=== PATIENT | male | born 1960 | race Hispanic/Latino ===

== ENCOUNTER 2019-09-06 02:16 | Emergency (ER) | payer OTHER ==
[~2019-09-06] VITALS: Ht 165.1 cm; Wt 68.0 kg
[2019-09-06] MEDS ORDERED: ASPIRIN 81 MG CHEW TAB PO ONE (02:30)
[2019-09-06] MEDS ORDERED: KETOROLAC TROMETHAMINE 60 MG/2 ML VIAL IM ONE (03:00)
[2019-09-06 04:02] LABS: BILIRUBIN,URINE NEGATIVE (NEGATIVE); CLARITY,URINE CLOUDY (CLEAR); COLOR,URINE YELLOW (YELLOW); KETONES,URINE NEGATIVE (NEGATIVE); LEUKOCYTE ESTERASE ,URINE NEGATIVE (NEGATIVE); NITRITE,URINE NEGATIVE (NEGATIVE); PROTEIN,URINE DIPSTICK NEGATIVE (NEGATIVE); URINE UROBILINOGEN 0.2 mg/dL (0.2 - 1)
--- NOTE | 2019-09-06 04:17 | Diagnostic Imaging Report ---
EXAM: CT Abdomen and Pelvis WITHOUT contrast INDICATION: Right flank pain. COMPARISON: None. TECHNIQUE: Abdomen and pelvis were scanned utilizing a multidetector helical scanner from the lung base to the pubic symphysis without administration of IV contrast. Absence of intravenous contrast decreases sensitivity for detection of focal lesions and vascular pathology. Coronal and sagittal reformations were obtained. Renal stone protocol was performed. IV CONTRAST: None. ORAL CONTRAST: Water RADIATION DOSE: Total DLP: 244.91 mGy*cm Estimated effective dose: (DLP x 0.015 x size factor) mSv COMPLICATIONS: None FINDINGS: LINES and TUBES: None. LOWER THORAX: Unremarkable HEPATOBILIARY: No focal hepatic lesions. No biliary ductal dilation. GALLBLADDER: No radio-opaque stones or sludge. No wall thickening. SPLEEN: No splenomegaly. PANCREAS: No focal masses or ductal dilatation. ADRENALS: No adrenal nodules KIDNEYS/URETERS: Mild right hydroureteronephrosis. Right perinephric stranding without perinephric fluid collections. There is no left-sided hydronephrosis. No cystic or solid mass lesions. Millimeter calculus in the interpolar region of the right kidney on image 73 series 3. GI TRACT: No abnormal distention, wall thickening, or evidence of bowel obstruction. There are diverticula within the colon without evidence of diverticulitis. Appendix is normal. PELVIC ORGANS/BLADDER: 2.5 mm calculus within the right posterior aspect of the urinary bladder lumen just distal to the right UVJ, likely recently passed. Calcifications of the prostate. LYMPH NODES: No lymphadenopathy. VESSELS: Unremarkable. PERITONEUM / RETROPERITONEUM: No free air or fluid. BONES: There are degenerative changes in the lumbar spine. SOFT TISSUES: Bilateral small fat-containing inguinal hernias. IMPRESSION: 2.5 mm calculus within the right posterior aspect of the urinary bladder lumen just distal to the right UVJ associated with right hydroureteronephrosis; it likely recently passed. Signed by: Dr. Ronnie Moss M.D. on 09/06/2019 4:14 AM
[2019-09-06 04:26] VITALS: BP 171/83
[2019-09-06 04:35] LABS: BACTERIA,URINE MODERATE /HPF; EPITHELIAL CELLS,URINE FEW /LPF; RBC,URINE >50 /HPF (0-5); RENAL EPITHELIAL CELLS,URINE FEW; WBC,URINE (MAN) 0-5 /HPF (0-5)
== END 2019-09-06 04:32 | disposition home or self-care (01) ==
LOC: ER 02:16
DX: R10.9 Unspecified abdominal pain (principal); M54.5 Low back pain; R11.10 Vomiting, unspecified; N20.1 Calculus of ureter; I10 Essential (primary) hypertension
CPT/HCPCS: 74176; 81001; 99283; J1885

== ENCOUNTER → 2019-12-30 | Day surgery (SDC) | payer OTHER ==
--- NOTE | 2019-12-26 16:22 | Diagnostic Imaging Report ---
Exam: KUB - 2 views Indication: Preoperative Comparison: CT abdomen and pelvis of 09/06/2019 Findings: 4 mm right midpole renal calculus. No radiographically apparent left renal calculi. No acute osseous injury. Nonobstructive bowel gas pattern. No free air. Impression: 4 mm right midpole renal calculus. Signed by: Florencia Gayle MD on 12/26/2019 4:19 PM
[~2019-12-30] MED LIST: DEXAMETHASONE SOD PHOS INJ 4 MG/ML VIAL ONE; FENTANYL CITRATE/PF 100MCG/2 ML INJ ONE; LEVOFLOXACIN 500MG/D5W 100ML 100 ML IV ONE; LIDOCAINE HCL 2% LOCAL INJ 5 ML SDV VIAL INJ ONE; LOSARTAN POTASS25 MG PO; ONDANSETRON HCL INJ 2MG/ML 2ML 2 MG/ML VIAL ONE; PROPOFOL IV EMULSION 10 MG/ML 20 ML VIAL ONE; SEVOFLURANE INHAL SOLN 250 ML PEN BTL ONE
--- OUTSIDE RECORDS SUMMARY | 2019-12-30 05:57 | XMS REPORT ---
Author Author [facility] Address Unknown Phone Unavailable Care Team Providers Care [employer] Specialist Name Role Phone HANNAH ARCEO Unavailable Unavailable CHAS ELDER Unavailable Unavailable Problems This patient has no known problems. Allergies, Adverse Reactions, Alerts This patient has no known allergies or adverse reactions. Medications This patient has no known medications. Results Test Description Test Time Test Comments Text Results Atomic Results Result Comments ABDOMEN-1VIEW (KUB) 2019-12-26 16:18:00 [place] [address] Patient Name: ROSHNI TAPIA MR #: [id number] : 1960 Age/Sex: 59/M Req #: [id number] Adm Physician: Ordered by: HANNAH ARCEO MD Report #: [id number] Location: OR Room/Bed: Procedure: [id number] DX/ABDOMEN-1VIEW (KUB) Exam Date: 12/26/19 Exam Time: 1605 REPORT STATUS: Signed Exam: KUB - 2 views Indication: Preoperative Comparison: CT abdomen and pelvis of 09/06/2019 Findings: 4 mm right midpole renal calculus. No radiographically apparent left renal calculi. No acute osseous injury. Nonobstructive bowel gas pattern. No free air. Impression: 4 mm right midpole renal calculus. Signed by: David Guzman MD on 12/26/2019 4:19 PM Dictated By: DAVID GUZMAN MD 18 Transcribed By: STEPHANE on 12/26/191618 COPY TO: HANNAH ARCEO MD CT ABDOMEN/PELVIS WO 2019-09-06 04:06:00 [place] [address] Patient Name: ROSHNI TAPIA MR #: [id number] : 1960 Age/Sex: 59/M Req #: [id number] Adm Physician: Ordered by: CHAS ELDER DO Report #: [id number] Location: ER Room/Bed: Procedure: [id number] CT/CT ABDOMEN/PELVIS WO Exam Date: Exam Time: REPORT STATUS: Signed EXAM: CT Abdomen and Pelvis WITHOUT contrast INDICATION: Right flank pain. COMPARISON: None. TECHNIQUE: Abdomen and pelvis were scanned utilizing a multidetector helical scanner from the lung base to the pubic symphysis without administration of IV contrast. Absence of intravenous contrast decreases sensitivity for detection of focal lesions and vascular pathology. Coronal and sagittal reformations were obtained. Renal stone protocol was performed. IV CONTRAST: None. ORAL CONTRAST: Water RADIATION DOSE: Total DLP: 244.91 mGy*cm Estimated effective dose: (DLP x 0.015 x size factor) mSv COMPLICATIONS: None FINDINGS: LINES and TUBES: None. LOWER THORAX: Unremarkable HEPATOBILIARY: No focal hepatic lesions. No biliary ductal dilation. GALLBLADDER: No radio-opaque stones or sludge. No wall thickening. SPLEEN: No splenomegaly. PANCREAS: No focal masses or ductal dilatation. ADRENALS: No adrenal nodules KIDNEYS/URETERS: Mild right hydroureteronephrosis. Right perinephric stranding without perinephric fluid collections. There is no left-sided hydronephrosis. No cystic or solid mass lesions. Millimeter calculus in the interpolar region of the right kidney on image 73 series 3. GI TRACT: No abnormal distention, wall thickening, or evidence of bowel obstruction. There are diverticula within the colon without evidence of diverticulitis. Appendix is normal. PELVIC ORGANS/BLADDER: 2.5 mm calculus within the right posterior aspect of the urinary bladder lumen just distal to the right UVJ, likely recently passed. Calcifications of the prostate. LYMPH NODES: No lymphadenopathy. VESSELS: Unremarkable. PERITONEUM / RETROPERITONEUM: No free air or fluid. BONES: There are degenerative changes in the lumbar spine. SOFT TISSUES: Bilateral small fat-containing inguinal hernias. IMPRESSION: 2.5 mm calculus within the right posterior aspect of the urinary bladder lumen just distal to the right UVJ associated with right hydroureteronephrosis; it likely recently passed. Signed by: Dr. Ronnie Lal M.D. on 09/06/2019 4:14 AM Dictated By: ALISA LAL MD, MD Transcribed By: STEPHANE on 09/06/19413 COPY TO: CHAS ELDER DO
[2019-12-30 09:30] VITALS: BP 143/91
--- NOTE | 2020-01-04 15:30 | Operative Report ---
DATE OF PROCEDURE: 12/30/2019 SURGEON: Marcelo Palacio MD PREOPERATIVE DIAGNOSIS: Right-sided kidney stone. POSTOPERATIVE DIAGNOSIS: Right-sided kidney stone. PROCEDURES: 1. Staged right-sided shock wave lithotripsy. 2. Supervision of fluoroscopy. ANESTHESIA: General. ESTIMATED BLOOD LOSS: Minimal. COMPLICATIONS: None. INDICATIONS FOR PROCEDURE: Mr. Castro is a very pleasant 59-year-old male with a history of intermittently symptomatic right-sided kidney stone. He and I had a long discussion about alternatives, risks, and benefits of doing nothing, shock wave lithotripsy, ureteroscopy, percutaneous surgery or open surgery. He voiced understanding of the options, alternatives, risks, and benefits and elected to proceed. PROCEDURE IN DETAIL: After informed consent was obtained, the patient was taken to the operative suite, placed supine on the operative table, underwent general anesthesia by the Anesthesia Service, placed in supine position. Stone was localized in the X, Y, and Z planes. Treatment was performed per the treatment report. The patient tolerated the procedure well and was transferred to the recovery room in excellent condition. Supervision of fluoroscopy: I was present for the entire procedure and supervised fluoroscopy. There was no radiologist present. Dosages per treatment report. Marcelo Palacio MD ES/MODL /[id number]
== END | disposition home or self-care (01) ==
LOC: OR 05:47
PROVIDERS: ATTEND Urology
DX: N13.2 Hydronephrosis with renal and ureteral calculous obstruction (principal); Z88.0 Allergy status to penicillin; Z01.810 Encounter for preprocedural cardiovascular examination; Z01.818 Encounter for other preprocedural examination; I10 Essential (primary) hypertension
CPT/HCPCS: 50590; 74018; 93005; J1100; J1956; J2001; J2405; J3010